=== PATIENT | male | born 1970 | race Caucasian/White ===

== ENCOUNTER → 2017-04-25 | Outpatient (CLI) | payer OTHER ==
[~2017-04-25] MED LIST: GLC/500 PO; NAPR1TAB9 PO
[2017-04-25 17:55] LABS: ALBUMIN 3.6 gm/dl (3.4-5.0); ALKALINE PHOSPHATASE 134 U/L (45-117); ALT/SGPT 38 U/L (12-78); AST/SGOT 16 U/L (15-37); BLOOD UREA NITROGEN 12 mg/dl (7-18); CALCIUM 8.3 mg/dl (8.5-10.1); CARBON DIOXIDE 28 mmol/L (21-32); CHOLESTEROL 155 mg/dl (0-200); CREATININE 1.17 mg/dl (0.60-1.40); GLUCOSE 208 mg/dl (70-99); POTASSIUM 4.2 mmol/L (3.5-5.1); SODIUM 136 mmol/L (136-145); TOTAL PROTEIN 7.3 gm/dl (6.4-8.2)
[2017-04-26 07:24] LABS: HEMOGLOBIN A1C 12.5 % (4.5-5.6)
== END | disposition home or self-care (01) ==
LOC: C.LABBFT 13:54
PROVIDERS: ATTEND Physician Assistant Medical
DX: E11.65 Type 2 diabetes mellitus with hyperglycemia (principal)